=== PATIENT | female | born 1995 | race Caucasian/White ===

== ENCOUNTER 2016-06-16 20:40 | Emergency (ER) | payer BC ==
[~2016-06-16] VITALS: Ht 160 cm; Wt 55.9 kg
[~2016-06-16 20:40] MED LIST: BCP PO; CEPHALEXIN500 M1 PO; LO LOESTRIN FE1 TAB PO; SPRINTEC 35 MCG1 TAB PO
[2016-06-16] MEDS ORDERED: SPRINTEC 35 MCG1 TAB PO (20:46)
[2016-06-16 20:47] VITALS: BP 143/80; PULSE 76; TEMP 98.4
== END 2016-06-16 21:37 | disposition home or self-care (01) ==
LOC: COL.ER 20:40
DX: S63.501A Unspecified sprain of right wrist, initial encounter (principal); W01.198A Fall on same level from slipping, tripping and stumbling with subsequent striking against other object, initial encounter